=== PATIENT | male | born 1960 | race Caucasian/White ===

== ENCOUNTER 2019-05-13 12:28 | Inpatient (IN) | payer OTHER ==
[~2019-05-13] VITALS: Ht 175.3 cm; Wt 55.8 kg
[2019-05-13 12:40] VITALS: BP 124/69; PULSE 60; RESP 20
[2019-05-13 13:00] VITALS: BP 124/69; PULSE 60; RESP 19
[2019-05-13 13:37] VITALS: Ht 175.3 cm; Wt 55.8 kg
[2019-05-13 14:00] VITALS: BP 124/78; PULSE 88; RESP 18
[2019-05-13] MEDS ORDERED: DEXTROSE 50% 50 ML SYRINGE IV PRN ×2 (14:00)
[2019-05-13] MEDS ORDERED: traZODone 50 MG TAB PO PRN (14:00)
[2019-05-13] MEDS ORDERED: GLUCOSE GEL 15 GRAM TUBE PO PRN ×2 (14:00)
[2019-05-13] MEDS ORDERED: NACL 0.9% 3 ML SYG IV SCH (14:00)
[2019-05-13] MEDS ORDERED: GLUCAGON 1 MG INJ IM PRN (14:00)
[2019-05-13] MEDS ORDERED: ONDANSETRON 4 MG INJ IV PRN (14:00)
[2019-05-13] MEDS ORDERED: GLUCOSE GEL 15 GRAM TUBE BUCCAL PRN (14:00)
[2019-05-13] MEDS ORDERED: ACETAMINOPHEN 325 MG TAB PO PRN (14:00)
[2019-05-13] MEDS ORDERED: LACTULOSE 30ML CUP PO PRN (16:30)
[2019-05-13] MEDS ORDERED: BISACODYL 10 MG SUPP PR PRN (16:30)
[2019-05-13] MEDS: INSULIN ASPART [NOVOLOG] 3 ML PEN SC SCH ×2 (17:20→21:29)
[2019-05-13 19:48] VITALS: BP 118/70; PULSE 82; RESP 18
[2019-05-13] MEDS ORDERED: SENNA TAB PO ONE (21:00)
[2019-05-13] MEDS ORDERED: ATORVASTATIN 40 MG TAB PO SCH (21:00)
[2019-05-13] MEDS: CARBIDOPA/LEVODOPA (25/250) TAB PO SCH (21:19)
[2019-05-13] MEDS: DOCUSATE SODIUM 10 MG/ML (10ML CUP) PO SCH (21:20)
[2019-05-14 02:00] VITALS: BP 122/67; PULSE 78; RESP 18
[2019-05-14] MEDS: ACCU-CHEK XX SCH (02:00)
[2019-05-14 07:30] VITALS: BP 149/80; RESP 18
[2019-05-14] MEDS: INSULIN ASPART [NOVOLOG] 3 ML PEN SC SCH ×4 (07:35→21:00)
[2019-05-14] MEDS: EZETIMIBE 10 MG TAB PO SCH (08:15)
[2019-05-14] MEDS: CARBIDOPA/LEVODOPA (25/250) TAB PO SCH ×3 (08:15→21:24)
[2019-05-14] MEDS: BENAZEPRIL 10 MG TAB PO SCH (08:15)
[2019-05-14] MEDS: DOCUSATE SODIUM 10 MG/ML (10ML CUP) PO SCH ×2 (08:15→21:23)
[2019-05-14] MEDS: ASPIRIN 81 MG TAB PO SCH (08:15)
[2019-05-14 14:00] VITALS: BP 129/72; PULSE 75; RESP 18
[2019-05-14] MEDS: BROMOCRIPTINE 2.5 MG TAB PO SCH ×2 (14:54→23:26)
[2019-05-14 19:59] VITALS: BP 132/75; PULSE 79; RESP 18
[2019-05-14] MEDS: ATORVASTATIN 40 MG TAB PO SCH (21:24)
[2019-05-15 02:00] VITALS: BP 127/72; PULSE 76; RESP 18
[2019-05-15] MEDS: ACCU-CHEK XX SCH (02:00)
[2019-05-15] MEDS: INSULIN ASPART [NOVOLOG] 3 ML PEN SC SCH ×4 (07:35→20:52)
[2019-05-15 08:00] VITALS: BP 154/75; PULSE 64; RESP 19
[2019-05-15] MEDS: BROMOCRIPTINE 2.5 MG TAB PO SCH ×2 (09:37→20:48)
[2019-05-15] MEDS: ASPIRIN 81 MG TAB PO SCH (09:37)
[2019-05-15] MEDS: DOCUSATE SODIUM 10 MG/ML (10ML CUP) PO SCH ×2 (09:37→20:52)
[2019-05-15] MEDS: EZETIMIBE 10 MG TAB PO SCH (09:37)
[2019-05-15] MEDS: CARBIDOPA/LEVODOPA (25/250) TAB PO SCH ×3 (09:37→20:48)
[2019-05-15] MEDS: BENAZEPRIL 10 MG TAB PO SCH (09:37)
[2019-05-15 14:30] VITALS: BP 130/69; PULSE 61; RESP 20
[2019-05-15 20:00] VITALS: BP 134/68; PULSE 58; RESP 18
[2019-05-15] MEDS: ATORVASTATIN 40 MG TAB PO SCH (20:48)
[2019-05-16] MEDS: ACCU-CHEK XX SCH (02:09)
[2019-05-16 02:19] VITALS: BP 127/60; PULSE 63; RESP 18
[2019-05-16] MEDS: MAGNESIUM HYDROXIDE 30ML CUP PO PRN (06:35)
[2019-05-16 07:30] VITALS: BP 142/78; PULSE 59; RESP 20
[2019-05-16] MEDS: INSULIN ASPART [NOVOLOG] 3 ML PEN SC SCH ×4 (07:54→20:32)
[2019-05-16] MEDS: EZETIMIBE 10 MG TAB PO SCH (09:50)
[2019-05-16] MEDS: BROMOCRIPTINE 2.5 MG TAB PO SCH ×2 (09:50→20:29)
[2019-05-16] MEDS: ASPIRIN 81 MG TAB PO SCH (09:50)
[2019-05-16] MEDS: BENAZEPRIL 10 MG TAB PO SCH (09:50)
[2019-05-16] MEDS: CARBIDOPA/LEVODOPA (25/250) TAB PO SCH ×3 (09:50→20:29)
[2019-05-16] MEDS: DOCUSATE SODIUM 10 MG/ML (10ML CUP) PO SCH ×2 (09:50→20:42)
[2019-05-16 14:00] VITALS: BP 110/76; PULSE 74; RESP 18
[2019-05-16 20:00] VITALS: BP 125/73; PULSE 76; RESP 18
[2019-05-16] MEDS: ATORVASTATIN 40 MG TAB PO SCH (20:29)
[2019-05-17 01:56] VITALS: BP 121/68; PULSE 63; RESP 18
[2019-05-17] MEDS: ACCU-CHEK XX SCH (02:00)
[2019-05-17 09:23] VITALS: BP 135/71; PULSE 56; RESP 18
[2019-05-17] MEDS: INSULIN ASPART [NOVOLOG] 3 ML PEN SC SCH ×4 (09:42→21:00)
[2019-05-17] MEDS: DOCUSATE SODIUM 10 MG/ML (10ML CUP) PO SCH ×2 (09:42→20:53)
[2019-05-17] MEDS: EZETIMIBE 10 MG TAB PO SCH (09:42)
[2019-05-17] MEDS: BROMOCRIPTINE 2.5 MG TAB PO SCH ×2 (09:42→20:53)
[2019-05-17] MEDS: CARBIDOPA/LEVODOPA (25/250) TAB PO SCH ×3 (09:42→20:53)
[2019-05-17] MEDS: ASPIRIN 81 MG TAB PO SCH (09:43)
[2019-05-17] MEDS: BENAZEPRIL 10 MG TAB PO SCH (09:44)
[2019-05-17] MEDS: INSULIN GLARGINE [LANTus] (100 UNITS/ML) SYG SC SCH (12:05)
[2019-05-17 14:39] VITALS: BP 115/67; PULSE 82; RESP 18
[2019-05-17 20:00] VITALS: BP 117/69; PULSE 58; RESP 18
[2019-05-17] MEDS: ATORVASTATIN 40 MG TAB PO SCH (20:53)
[2019-05-18 02:00] VITALS: BP 121/67; PULSE 86; RESP 18
[2019-05-18] MEDS: ACCU-CHEK XX SCH (02:00)
[2019-05-18 07:00] VITALS: BP 122/69; PULSE 76; RESP 18
[2019-05-18] MEDS: INSULIN ASPART [NOVOLOG] 3 ML PEN SC SCH ×4 (07:35→20:45)
[2019-05-18] MEDS: INSULIN GLARGINE [LANTus] (100 UNITS/ML) SYG SC SCH (08:13)
[2019-05-18] MEDS: BENAZEPRIL 10 MG TAB PO SCH (08:14)
[2019-05-18] MEDS: BROMOCRIPTINE 2.5 MG TAB PO SCH ×2 (08:14→20:42)
[2019-05-18] MEDS: DOCUSATE SODIUM 10 MG/ML (10ML CUP) PO SCH ×2 (08:14→20:42)
[2019-05-18] MEDS: ASPIRIN 81 MG TAB PO SCH (08:14)
[2019-05-18] MEDS: CARBIDOPA/LEVODOPA (25/250) TAB PO SCH ×3 (08:14→20:42)
[2019-05-18] MEDS: EZETIMIBE 10 MG TAB PO SCH (08:14)
[2019-05-18 14:00] VITALS: BP 122/71; PULSE 72; RESP 18
[2019-05-18 19:56] VITALS: BP 124/68; PULSE 65; RESP 18
[2019-05-18] MEDS: MAGNESIUM HYDROXIDE 30ML CUP PO PRN (20:42)
[2019-05-18] MEDS: ATORVASTATIN 40 MG TAB PO SCH (20:43)
[2019-05-19] MEDS: ACCU-CHEK XX SCH (01:57)
[2019-05-19 02:27] VITALS: BP 143/75; PULSE 60; RESP 18
[2019-05-19] MEDS: INSULIN ASPART [NOVOLOG] 3 ML PEN SC SCH ×4 (07:35→21:35)
[2019-05-19] MEDS: EZETIMIBE 10 MG TAB PO SCH (07:55)
[2019-05-19] MEDS: INSULIN GLARGINE [LANTus] (100 UNITS/ML) SYG SC SCH (07:55)
[2019-05-19] MEDS: ASPIRIN 81 MG TAB PO SCH (07:56)
[2019-05-19] MEDS: DOCUSATE SODIUM 10 MG/ML (10ML CUP) PO SCH ×2 (07:56→21:27)
[2019-05-19] MEDS: CARBIDOPA/LEVODOPA (25/250) TAB PO SCH ×3 (07:56→21:28)
[2019-05-19 08:02] VITALS: BP 115/87; PULSE 89; RESP 18
[2019-05-19] MEDS: BROMOCRIPTINE 2.5 MG TAB PO SCH ×2 (08:09→21:27)
[2019-05-19] MEDS: BENAZEPRIL 10 MG TAB PO SCH (08:09)
[2019-05-19 15:01] VITALS: BP 117/61; PULSE 63; RESP 18
[2019-05-19 20:19] VITALS: BP 123/78; PULSE 72; RESP 18
[2019-05-19] MEDS: ATORVASTATIN 40 MG TAB PO SCH (21:28)
[2019-05-20 02:06] VITALS: BP 125/74; PULSE 67; RESP 18
[2019-05-20] MEDS: ACCU-CHEK XX SCH (02:26)
[2019-05-20 07:00] VITALS: BP 135/73; PULSE 56; RESP 18
[2019-05-20] MEDS: INSULIN ASPART [NOVOLOG] 3 ML PEN SC SCH ×3 (07:35→17:41)
[2019-05-20] MEDS: EZETIMIBE 10 MG TAB PO SCH (08:07)
[2019-05-20] MEDS: INSULIN GLARGINE [LANTus] (100 UNITS/ML) SYG SC SCH (08:07)
[2019-05-20] MEDS: BROMOCRIPTINE 2.5 MG TAB PO SCH (08:08)
[2019-05-20] MEDS: ASPIRIN 81 MG TAB PO SCH (08:08)
[2019-05-20] MEDS: DOCUSATE SODIUM 10 MG/ML (10ML CUP) PO SCH (08:08)
[2019-05-20] MEDS: CARBIDOPA/LEVODOPA (25/250) TAB PO SCH ×2 (08:08→12:08)
[2019-05-20] MEDS: BENAZEPRIL 10 MG TAB PO SCH (08:17)
== END 2019-05-20 18:50 | disposition home health service (06) | DRG 57 ==
LOC: VRC 12:28
PROVIDERS: ADMIT Physical Medicine & Rehabilitation; ATTEND Internal Medicine Pulmonary Disease
DX: I69.354 Hemiplegia and hemiparesis following cerebral infarction affecting left non-dominant side (principal); I69.320 Aphasia following cerebral infarction; I69.391 Dysphagia following cerebral infarction; R13.12 Dysphagia, oropharyngeal phase; I10 Essential (primary) hypertension; E78.5 Hyperlipidemia, unspecified; Z74.09 Other reduced mobility; E11.9 Type 2 diabetes mellitus without complications; G20 Parkinson's disease; F20.9 Schizophrenia, unspecified; G31.84 Mild cognitive impairment of uncertain or unknown etiology
CPT/HCPCS: 74230; 80053; 81003; 82607; 82962; 83036; 83605; 83615; 83735; 84443; 85025; 86592; 86803; 87081; 87086; 87340; 92507; 92523; 92526; 92610; 92611; 97110; 97112; 97116; 97163; 97167; 97530; 97535; 97542; J1815